=== PATIENT | male | born 1990 | race Caucasian/White ===

== ENCOUNTER 2019-10-04 16:06 | Emergency (ER) | payer SELFPAY ==
--- NOTE | ~2019-10-04 | XR_ITS ---
EXAMINATION: XR knee RT 3V DATE: 10/04/2019 16:45 INDICATION: Right knee pain. Injury. TECHNIQUE: 4 views of right knee were obtained. COMPARISON: None. FINDINGS: Bone alignment is normal. No fracture. Joint spaces are well maintained. There is a small k nee joint effusion. IMPRESSION: 1. Small knee joint effusion. Reviewed, dictated and finalized at location A.
--- NOTE | 2019-10-04 16:11 | ED.LOWEXIN ---
HPI - Extremity Injury (Lower) General Chief Complaint: Extremity Injury, Lower Stated Complaint: r knee pain Time Seen by Provider: 10/04/19 16:22 Source: patient Mode of arrival: ambulatory Limitations: no limitations History of Present Illness HPI Narrative: A 29-year-old man comes in complaining of right knee pain that is worse with movement and weight-bearing. He states it started 2 days ago when he twisted it. He denies numbness, tingling, weakness, redness and swelling. He has had no fever. MD complaint: knee injury Injury: Right: knee Type of Injury: other ( twisting) Severity: moderate Relieving factors: rest Exacerbating factors: weight bearing, movement and palpation Associated symptoms: snap/pop sensation and able to partially bear weight Related Data Allergies Allergy/AdvReac Type Severity Reaction Status Date / Time amoxicillin Allergy Hives Verified 10/04/19 16:19 Review of Systems Constitutional: Constitutional: Denies chills, Denies fever(s) and Denies weakness ENT: Denies dysphagia, Denies nasal congestion and Denies sore throat Musculoskeletal: Musculoskeletal: Reports as per HPI and Reports arthralgias Integumentary/Breasts: Skin/Breast: Denies pruritus, Denies rash and Denies skin ulcer Neurologic: Denies vertigo, Denies dizziness, Denies syncope, Denies focal weakness and Denies numbness Hematologic/Lymphatic: Hematologic/Lymphatic: Denies easy bleeding and Denies easy bruising Allergic/Immunologic: Allergic/Immunologic: Denies lip swelling and Denies wheezing PMFSH Social History Social History Smoking status: Current every day smoker Living arrangements: with family Exam Const: General: healthy appearing and alert Orientation/consciousness: patient oriented x3 Limitations: no limitations Other: mild acute distress Eyes: Conjunctivae: conjunctivae normal Pupils: Equal, round and reactive pupils present EOM: EOMs intact bilaterally Neck: Neck: normal visual inspection and no lymphadenopathy Resp: Effort & Inspection: normal respiratory effort and not labored Auscultation: clear to auscultation bilaterally, no rales, no rhonchi and no wheezes Cardio: Rate: regular rate Rhythm: regular rhythm Heart sounds: no murmurs Skin: General skin exam: normal color, no jaundice and no pallor Rashes: no rashes Neuro: General: patient oriented x3, moves all extremities, no focal motor deficits and CN's II-XI intact bilaterally Speech: normal speech Extrem: General: normal to inspection and no clubbing, cyanosis or edema Other: Tenderness to palpation of the anterior joint line on medially and laterally. There is no apparent effusion, warmth, erythema or induration. Does not tolerate ligamentous testing well. No apparent laxity to varus or valgus stress. Patient has 0-90? active and passive range of motion. Psych: Appearance: grossly normal and well kempt Mental Status: mental status grossly normal Affect: normal affect Attitude: cooperative Thought content: Yes Normal thought content present Discharge Plan Discharge Clinical Impression: Acute internal derangement of knee Qualifiers: Laterality: right Qualified Code(s): M23.91 - Unspecified internal derangement of right knee Patient Disposition: Home, Self-Care Condition: Stable Instructions: Knee Sprain (ED) Additional Instructions: Rest, ice, elevation and ibuprofen or naproxen. Follow-up with your doctor in the next week. Prescriptions: New tramadol [Ultram] 50 mg tablet 50 mg PO Q6H PRN (Reason: pain) Qty: 14 RF: 0 (DME) crutch Misc See Rx Instructions .ROUTE .MEDSUPPLY Qty: 2 RF: 0 Follow-up/Referrals: UNKNOWN,DOCTOR [Primary Care Provider] - Stand Alone Forms: Work/School Release IP
[2019-10-04 16:22] VITALS: BP 134/84; PULSE 111; RESP 14; TEMP 36.8; O2SAT 97
[2019-10-04] MEDS: IBUPROFEN 600 MG TABLET PO (16:40)
[2019-10-04 17:06] VITALS: RESP 15; O2SAT 100
== END 2019-10-04 17:07 | disposition home or self-care (01) ==
PROVIDERS: Emergency Provider Emergency Medicine
DX: M23.91 Unspecified internal derangement of right knee (principal)
CPT/HCPCS: 73562; 99283; A9270; L2112

== ENCOUNTER 2022-12-18 12:08 | Inpatient (IN) | payer SELFPAY ==
--- NOTE | ~2022-12-18 | US_ITS ---
US renal BI 12/18/2022 14:19 Procedure: Realtime transabdominal ultrasound of the kidneys and bladder. Indication: Acute renal insufficiency Comparison: No prior studies for comparison. Findings: Renal echotexture is normal bilaterally without hydronephrosis, contour deforming mass or r enal calculus. The right kidney measures 11 cm and left kidney measures 11.2 cm. Bladder is not dist ended for evaluation. Impression: 1: Unremarkable renal ultrasound. No stones, masses or hydronephrosis. Reviewed, dictated and finalized at location B. Impression: 1: Unremarkable renal ultrasound. No stones, masses or hydronephrosis.
--- NOTE | 2022-12-18 10:59 | ADMGEN ---
This patient, Burt Mares, was admitted to [facility] Surg Room 314-01. Patient/family oriented to hospital policies and general routines including ID bracelet, bed and alarms, visiting hours, pain management, procedures, bathroom and other care routines, personal items, smoking policy, room service/diet, and visiting hours. Information on how to activate the Rapid Response Team has been discussed. Patient/Family are encouraged to report perceived risks to care and to ask questions if they do not understand what they are told or what they should do.
[2022-12-18] MEDS: SODIUM CHLORIDE 0.9% IV 1,000 ML 999 ML IV CONT ×2 (11:05→11:30)
[2022-12-18] MEDS: CALCIUM CARBONATE (TUMS) 500 MG (200 MG ELEMENTAL) PO ×2 (11:16→22:04)
[2022-12-18 11:23] VITALS: BP 129/99; PULSE 94; RESP 18; TEMP 36.6; O2SAT 99
--- NOTE | 2022-12-18 12:10 | ECG_ITS ---
Measurements Intervals [place] Rate: 88 P: 58 ME: 136 QRS: 53 QRSD: 97 T: 51 QT: 371 QTc: 450 Interpretive Statements BASELINE ARTIFACT REDUCES ECG QUALITY SINUS RHYTHM WITHIN NORMAL LIMITS NO PREVIOUS ECG AVAILABLE FOR COMPARISON Electronically Signed On 12-18-2022 14:50:42 CDT by Sixto Mi M.D.
--- NOTE | 2022-12-18 12:13 | PM.IMHP ---
H&P: HPI History of Present Illness Date/Time: 12/18/22 12:13 Chief Complaint: weakness, nausea, emesis Narrative: 32-year-old male with no past medical history presenting with nausea, vomiting, weakness and general malaise. He states he has been working outside and not drinking enough water. He is also complaining of a slight headache. He presented to [facility] was found to have acute kidney injury with severe elevation in his creatinine and mild elevation in his BUN. Transfer was requested to [place] for higher level of care. Patient was given an IV fluid bolus and symptoms improved. Symptoms are resolved at this time. No chest pain or shortness of breath. No nausea, vomiting or diarrhea. No fevers or chills. Of note, patient states this happened to him several years ago. At that time, he was also severely dehydrated, had significant elevation in his creatinine. All symptoms resolved with administration of IV fluids. Review of Systems Review of Systems: 12 point review of systems was assessed and was negative except as noted in the [facility] Social History Social History Smoking packs per day: 1.5 Smoking cigarettes per day: 30.0 Years smoked: 17 Smoking pack-years: 25.50 Smoking status: Current every day smoker Tobacco type: cigarettes Alcohol intake: current Drinks per week: 18 Substance use: current Substance use type: marijuana Lack of Transportation: No Lack of Food: Never True Current Housing: I Have Housing Concerned About Future Housing: No Difficulty Paying Gas/Electric Bills: No Difficulty Paying for Meds: No Currently Unemployed: No Education: High School Diploma/GED Difficulty w/ Childcare or Family Care: No Living arrangements: with family Spiritual care concerns: No Meds Home Medications and Allergies Home Medications Medication Instructions Recorded Confirmed Type No Home Medications 12/18/22 12/18/22 History Allergies Allergy/AdvReac Type Severity Reaction Status Date / Time amoxicillin Allergy Hives Verified 10/04/19 16:19 Vital Signs Vital Signs - 24 hr 12/18/22 11:23 Temperature 97.9 F Pulse Rate 94 Respiratory Rate 18 Blood Pressure 129/99 H Pulse Oximetry 99 Exam Narrative: General: No acute distress, alert and oriented per baseline HEENT: Atraumatic, normocephalic, mucous membranes moist CV: Regular rate and rhythm, S1, S2 Lungs: Clear to auscultation bilaterally, no rales or crackles noted, no wheezes, good air entry Abdomen: Soft, nontender, nondistended Extremities: Normal to inspection Skin: No rashes noted, no lesions or wounds seen Psych: Euthymic, normal affect Assessment and Plan Assessment and plan (1) Acute kidney injury: Code(s): N17.9 - Acute kidney failure, unspecified Status: Acute Assessment and Plan: Administer IV fluids, recheck creatinine Renal ultrasound (2) Dehydration: Code(s): E86.0 - Dehydration Status: Acute Assessment and Plan: As above Plan DVT prophylaxis with SCDs GI prophylaxis not indicated Code status full code
[2022-12-18] MEDS: MAG HYDROX/AL HYDROX/SIMETH 30 ML UDC PO (12:22)
[2022-12-18 13:00] LABS: Basophils Percent Auto 0.2 % (0.2-1.2); Hematocrit 34.8 % (42.0-52.0); Hemoglobin 11.7 g/dL (14.0-18.0); Immature Granulocyte Absolute 0.03 K/mm3 (0.00-0.031); Immature Granulocyte Percent A 0.5 % (0-0.5); Lymphocytes Absolute Auto 0.63 K/mm3 (0.9-3.2); Lymphocytes Percent Auto 9.5 % (18.3-44.2); Mean Corpuscular HGB Conc 33.6 g/dl (32-36); Mean Corpuscular Hemoglobin 34.1 pg (26-34); Mean Corpuscular Volume 101.5 fl (80-100); Mean Platelet Volume 10.2 fl (7.4-10.4); Monocytes Absolute Auto 0.7 K/mm3 (0.1-0.6); Monocytes Percent Auto 10.9 % (2.6-8.5); Neutrophils Absolute Auto 5.2 K/mm3 (1.3-6.7); Neutrophils Percent Auto 78.9 % (45.5-73.1); Platelet Count Result 154 k/mm3 (150-375); Red Blood Count 3.43 M/mm3 (4.6-6.20); White Blood Count 6.6 K/mm3 (4.5-10.0)
[2022-12-18 13:27] LABS: Anion Gap 10 mmol/L (8-16); Blood Urea Nitrogen 33 mg/dL (9-20); Calcium 7.6 mg/dL (8.4-10.2); Carbon Dioxide 26 mmol/L (22-30); Chloride 93 mmol/L (98-107); Estimated Glomerular Filt Rate 25; Glucose 118 mg/dL (65-110); Potassium 3.8 mmol/L (3.4-5.0); Sodium 129 mmol/L (137-145)
[2022-12-18 13:37] LABS: Troponin I < 0.012 ng/mL (0.000-0.034)
[2022-12-18] MEDS: SODIUM CHLORIDE 0.9% IV 1,000 ML 250 ML IV CONT ×3 (13:52→21:27)
[2022-12-18] MEDS: NICOTINE (*PBKC) 21 MG PATCH 1 PATCH TRANSDERM (13:52)
[2022-12-18 14:00] VITALS: BP 127/81; PULSE 86; RESP 14; TEMP 37.7; O2SAT 100
[2022-12-18 16:08] LABS: Troponin I < 0.012 ng/mL (0.000-0.034)
[2022-12-18] MEDS: ACETAMINOPHEN 325 MG TABLET 650 MG PO ×2 (17:06→21:26)
[2022-12-18 19:46] LABS: Troponin I < 0.012 ng/mL (0.000-0.034)
[2022-12-18 20:00] VITALS: PULSE 86; RESP 14; O2SAT 100
[2022-12-18 22:00] VITALS: BP 134/75; PULSE 82; RESP 18; TEMP 37.3; O2SAT 100
[2022-12-19] MEDS: SODIUM CHLORIDE 0.9% IV 1,000 ML 250 ML IV CONT ×2 (02:05→05:40)
[2022-12-19 06:00] VITALS: BP 132/76; PULSE 80; RESP 16; TEMP 37.2; O2SAT 100
[2022-12-19 07:25] LABS: Basophils Percent Auto 0.4 % (0.2-1.2); Eosinophils Percent Auto 0.6 % (0-4.4); Hematocrit 32.2 % (42.0-52.0); Hemoglobin 10.8 g/dL (14.0-18.0); Immature Granulocyte Absolute 0.03 K/mm3 (0.00-0.031); Immature Granulocyte Percent A 0.6 % (0-0.5); Immature Platelet Fraction Pct 8.3 % (0.9-11.2); Lymphocytes Absolute Auto 1.05 K/mm3 (0.9-3.2); Lymphocytes Percent Auto 19.3 % (18.3-44.2); Mean Corpuscular HGB Conc 33.5 g/dl (32-36); Mean Corpuscular Volume 101.3 fl (80-100); Mean Platelet Volume 10.5 fl (7.4-10.4); Monocytes Absolute Auto 0.5 K/mm3 (0.1-0.6); Monocytes Percent Auto 9.5 % (2.6-8.5); Neutrophils Absolute Auto 3.8 K/mm3 (1.3-6.7); Neutrophils Percent Auto 69.6 % (45.5-73.1); Platelet Count Result 129 k/mm3 (150-375); Red Blood Count 3.18 M/mm3 (4.6-6.20); Red Cell Distribution Width 12.5 % (11.5-14.5); White Blood Count 5.5 K/mm3 (4.5-10.0)
[2022-12-19 07:37] LABS: Alanine Aminotransferase 70 U/L (6-50); Albumin Level 3.4 g/dL (3.5-5.1); Alkaline Phosphatase 76 U/L (38-126); Anion Gap 7 mmol/L (8-16); Aspartate Amino Transferase 75 U/L (17-59); Bilirubin,Total 1.2 mg/dL (0.2-1.3); Blood Urea Nitrogen 18 mg/dL (9-20); Calcium 7.6 mg/dL (8.4-10.2); Carbon Dioxide 25 mmol/L (22-30); Chloride 100 mmol/L (98-107); Creatine Kinase 491 U/L (55-170); Estimated Glomerular Filt Rate > 60; Glucose 85 mg/dL (65-110); Potassium 3.1 mmol/L (3.4-5.0); Sodium 132 mmol/L (137-145)
[2022-12-19] MEDS: NICOTINE (*PBKC) 21 MG PATCH 1 PATCH TRANSDERM (08:36)
[2022-12-19] MEDS: ACETAMINOPHEN 325 MG TABLET 650 MG PO (08:39)
--- NOTE | 2022-12-19 09:33 | PM.DS ---
DS: Admitting Diagnosis Discharge Date 12/19/22 Admitting Diagnosis weakness DS: Discharge Diagnosis Discharge Diagnosis (1) Acute kidney injury: Code(s): N17.9 - Acute kidney failure, unspecified Status: Acute Assessment and Plan: Administer IV fluids, recheck creatinine Renal ultrasound (2) Dehydration: Code(s): E86.0 - Dehydration Status: Acute Assessment and Plan: As above Plan DVT prophylaxis with SCDs GI prophylaxis not indicated Code status full code DS: Summary Hospital Course Hospital Course: 32-year-old male with no past medical history presenting with nausea, vomiting, weakness and general malaise.? He states he has been working outside and not drinking enough water.? He is also complaining of a slight headache.? He presented to [place] ER was found to have acute kidney injury with severe elevation in his creatinine and mild elevation in his BUN.? Transfer was requested to [place] for higher level of care.? Patient was given an IV fluid bolus and symptoms improved. Of note, patient states this happened to him several years ago.? At that time, he was also severely dehydrated, had significant elevation in his creatinine.? All symptoms resolved with administration of IV fluids. Patient's creatinine came down to 1 and the patient was discharged in stable condition with close outpatient follow-up. Time Spent with Patient Time attestation: Total time spent providing and/or coordinating discharge services: Exam Narrative: General: No acute distress, alert and oriented per baseline HEENT: Atraumatic, normocephalic, mucous membranes moist CV: Regular rate and rhythm, S1, S2 Lungs: Clear to auscultation bilaterally, no rales or crackles noted, no wheezes, good air entry Abdomen: Soft, nontender, nondistended Extremities: Normal to inspection Skin: No rashes noted, no lesions or wounds seen Psych: Euthymic, normal affect DS: Data Data Completed and Pending Labs on day of discharge: Labs from last 24 hours 12/19/22 12/18/22 12/18/22 06:33 19:10 15:39 WBC 5.5 RBC 3.18 L Hgb 10.8 L Hct 32.2 L MCV 101.3 H MCH 34.0 MCHC 33.5 RDW 12.5 Plt Count 129 L MPV 10.5 H Immature Gran % (Auto) 0.6 H Neut % (Auto) 69.6 Lymph % (Auto) 19.3 [place] % (Auto) 9.5 H Eos % (Auto) 0.6 Baso % (Auto) 0.4 Lymph # (Auto) 1.05 [place] # (Auto) 0.5 Eos # (Auto) 0.0 Baso # (Auto) 0.0 Abs Immat Gran (auto) 0.03 Absolute Neuts (auto) 3.8 Absolute Nucleated RBC 0.0 Nucleated RBC % 0.0 % Immature Plt Fraction 8.3 Sodium 132 L Potassium 3.1 L Chloride 100 Carbon Dioxide 25 Anion Gap 7 L BUN 18 D Creatinine 1.00 Estim Creat Clear Calc Not Reportable Estimated GFR > 60 Glucose 85 Calcium 7.6 L Total Bilirubin 1.2 AST 75 H ALT 70 H Alkaline Phosphatase 76 Total Creatine Kinase 491 H Troponin I < 0.012 < 0.012 Total Protein 6.0 L Albumin 3.4 L 12/18/22 12/18/22 12:47 12:47 WBC 6.6 RBC 3.43 L Hgb 11.7 L Hct 34.8 L MCV 101.5 H MCH 34.1 H MCHC 33.6 RDW 13.0 Plt Count 154 MPV 10.2 Immature Gran % (Auto) 0.5 Neut % (Auto) 78.9 H Lymph % (Auto) 9.5 L [place] % (Auto) 10.9 H Eos % (Auto) 0.0 Baso % (Auto) 0.2 Lymph # (Auto) 0.63 L [place] # (Auto) 0.7 H Eos # (Auto) 0.0 Baso # (Auto) 0.0 Abs Immat Gran (auto) 0.03 Absolute Neuts (auto) 5.2 Absolute Nucleated RBC 0.0 Nucleated RBC % 0.0 % Immature Plt Fraction Sodium 129 L Potassium 3.8 Chloride 93 L Carbon Dioxide 26 Anion Gap 10 BUN 33 H Creatinine 2.90 H Estim Creat Clear Calc Not Reportable Estimated GFR 25 L Glucose 118 H Calcium 7.6 L Total Bilirubin AST ALT Alkaline Phosphatase Total Creatine Kinase Troponin I Cancelled < 0.012 Total Protein Albumin Discharge [place]
[2022-12-19] MEDS: POTASSIUM CHLORIDE 20 MEQ ER TABLET 40 MEQ PO (10:01)
== END 2022-12-19 10:03 | disposition home or self-care (01) | DRG 469 ==
PROVIDERS: Admitting Provider Student in an Organized Health Care Education/Training Program; PCP Family Medicine; Visit Provider Student in an Organized Health Care Education/Training Program
DX: N17.9 Acute kidney failure, unspecified (principal); E86.0 Dehydration; F17.210 Nicotine dependence, cigarettes, uncomplicated
CPT/HCPCS: 36415; 76775; 80048; 80053; 82550; 84484; 85025; 85055; 93005; A9270; J7030